=== PATIENT | female | born 1985 | race African-American/Black ===

== ENCOUNTER 2021-02-03 13:31 | Emergency (ER) | payer OTHER ==
[~2021-02-03] VITALS: Ht 165.1 cm; Wt 148.8 kg
[2021-02-03] MEDS ORDERED: ELIQUIS5 MG PO (13:46)
[2021-02-03] MEDS ORDERED: HYDREA500 MG PO (13:46)
[2021-02-03] MEDS ORDERED: SEROQUEL 50 MG50 MG PO (13:47)
[2021-02-03] MEDS ORDERED: PERCOCET 10-321 EAC1 PO ×2 (13:47→15:59)
[2021-02-03 14:37] LABS: ABSOLUTE BASOPHILS 0.1 thou/uL (0.0-0.2); ABSOLUTE EOSINOPHILS 0.1 thou/uL (0.0-0.7); ABSOLUTE LYMPHOCYTES 1.4 thou/uL (0.8-5.3); ABSOLUTE MONOCYTES 0.3 thou/uL (0.0-1.2); ABSOLUTE NEUTROPHILS 4.9 thou/uL (1.6-8.1); BASOPHILS 1.5 %; EOSINOPHILS 1.5 %; HEMATOCRIT 30.6 % (37.0-47.0); HEMOGLOBIN 9.7 gm/dL (12.0-15.0); LYMPHOCYTES 21.1 %; MCH 20.6 pg (26.0-34.0); MCHC 31.6 g/dL (28.0-37.0); MCV 65.3 fL (80.0-100.0); MONOCYTES 4.6 %; MPV 8.3 fl. (7.2-11.1); NUCLEATED RBCS 0 /100WBC; PLATELET COUNT* 391 thou/uL (150-400); POLYS 71.3 %; RBC 4.68 mil/uL (4.20-5.00); RDW-CV 19.9 % (10.5-14.5); WBC 6.8 thou/uL (4.0-11.0)
[2021-02-03 15:15] LABS: ANISOCYTOSIS 1+; HYPOCHROMASIA 3+; MICROCYTES 3+; PLATELET ESTIMATE ADEQUATE; TARGET CELLS Occasional
[2021-02-03 16:44] VITALS: BP 145/88
--- NOTE | 2021-02-05 15:18 | EKG ---
[place] [address] ELECTROCARDIOGRAM REPORT Name: EDWARD BERNAL Room: [facility]#: [id number] Admission: 02/03/21 Attend Phys: Discharge: 02/03/21 Date of : 87 Date of Service: 02/03/211517 Report #: [id number] THIS REPORT FOR: //name// [facility] ED Test Date: 2021-02-03 Test Time: 15:18:42 Pat Name: EDWARD BERNAL Department: Room: Gender: [place]: [facility] : 1985 Requested By: Thuy Brownlee Order Number: [id number] MD: James Smith Measurements Intervals [place] Rate: 73 P: 51 CT: 164 QRS: -10 QRSD: 98 T: 28 QT: 400 QTc: 441 Interpretive Statements Sinus rhythm Consider anterior infarct No previous ECG available for comparison Electronically Signed On 02-05-2021 15:18:19 CDT by James Smith [email or web address] <ELECTRONICALLY SIGNED> By: James Smith MD, [facility] 02/05/21 1518 151 1518 James Smith MD, FACC /EPI
== END 2021-02-03 16:45 | disposition home or self-care (01) ==
LOC: M.ERS 13:31
PROVIDERS: Nurse Practitioner Family
DX: R52 Pain, unspecified (principal); E66.9 Obesity, unspecified; Z68.43 Body mass index [BMI] 50.0-59.9, adult; Z86.2 Personal history of diseases of the blood and blood-forming organs and certain disorders involving the immune mechanism